=== PATIENT | female | born 2005 | race American Indian/Alaskan Native ===

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

== ENCOUNTER 2024-03-01 20:41 | Emergency (ER) | payer OTHER ==
[~2024-03-01] VITALS: Ht 170.2 cm; Wt 62.6 kg
[~2024-03-01 20:41] MED LIST changes: +ANTI-FUNGAL POW71 GM TOP; +DIFLUCAN100 MG PO
[2024-03-01] MEDS ORDERED: ADVIL200 MG PO (20:53)
[2024-03-01] MEDS ORDERED: ACETAMINOPHEN325 M1 PO (20:53)
[2024-03-01] MEDS ORDERED: SODIUM CHLORIDE 0.9% 500 ML IV ONE (21:00)
[2024-03-01] MEDS ORDERED: KETOROLAC TROMETHAMINE 30 MG/ML VIAL IV ONE (21:00)
[2024-03-01 21:15] LABS: BASOPHILS 0.3 % (0-2); EOSINOPHILS 0.1 % (0-6); HEMATOCRIT 38.5 % (35.0-50.0); HEMOGLOBIN 12.6 g/dL (12.0-18.0); LYMPHOCYTES 7.8 % (24-44); MCH 27.2 (27-36); MCHC 32.6 g/dl (30-36); MCV 83.4 fl (81-99); MONOCYTES 13.3 % (0-12); NEUTROPHILS 78.5 % (39-80); PLATELET COUNT 268 K/uL (140-440); RBC 4.61 M/ul (4.3-5.7); RDW 15.3 (10.5-15.0)
[2024-03-01 21:23] LABS: ANION GAP 16.4 (7-21); BUN/CREATININE RATIO 12.5 (6.0-28.6); CALCIUM 8.3 mg/dL (8.5-10.1); CREATININE, SERUM 0.64 mg/dL (0.55-1.02); POTASSIUM 3.4 mmol/L (3.5-5.1)
[2024-03-01] MEDS ORDERED: CYCLOBENZAPRINE HCL 10 MG TAB PO ONE (21:30)
[2024-03-01 21:58] LABS: INFLUENZA B NAA NEGATIVE (NEGATIVE); RESPIRATORY SYNCYTIAL VIR NAA NEGATIVE (NEGATIVE)
[2024-03-01] MEDS ORDERED: CYCLOBENZAPRINE10 MG PO (22:16)
[2024-03-01] MEDS ORDERED: CYCLOBENZAPRINE HCL 10 MG HOME.PACK PO ONE (22:30)
[2024-03-01 22:42] VITALS: BP 111/52
== END 2024-03-01 22:40 | disposition home or self-care (01) ==
LOC: ED 20:41
PROVIDERS: Family Medicine
DX: B34.9 Viral infection, unspecified (principal); Z87.891 Personal history of nicotine dependence; Z88.0 Allergy status to penicillin; Z88.1 Allergy status to other antibiotic agents; Z79.899 Other long term (current) drug therapy
CPT/HCPCS: 36415; 80048; 85025; 87502; 99283; J7040

== ENCOUNTER 2024-11-18 19:38 | Observation (INO) | payer OTHER ==
[~2024-11-18] VITALS: Ht 152.4 cm; Wt 58.4 kg
[~2024-11-18 19:38] MED LIST changes: +ACETAMINOPHEN325 M1 PO; +ADVIL200 MG PO; +CYCLOBENZAPRINE10 MG PO; +ONDANSETRON ODT4 MG PO
[2024-11-18 20:10] LABS: BASOPHILS 0.8 % (0.1-1.2); EOSINOPHILS 0.5 % (0.7-5.8); LYMPHOCYTES 31.8 % (19.3-51.7); MCH 27.0 PG (25.6-32.2); MCHC 30.8 g/dL (32.2-35.5); MCV 87.5 fL (79.4-94.8); MONOCYTES 5.4 % (4.7-12.5); NEUTROPHILS 61.4 % (34.0-71.1); RBC 4.56 M/uL (3.93-5.22)
[2024-11-18] MEDS ORDERED: NALOXONE HCL 0.4 MG SYR IV ONE (20:15)
[2024-11-18 20:46] LABS: ALCOHOL, MEDICAL 248 ng/dL (<3); ALT (SGPT) 18 U/L (14-59); AST (SGOT) 15 U/L (15-37); GLOMERULAR FILTRATION RATE,EST 152 mL/min (>60); PROTEIN, TOTAL 7.2 g/dL (6.4-8.2); TSH, 3RD GENERATION 1.232 uIU/mL (0.516-4.130); UREA NITROGEN 4 mg/dL (7-18)
[2024-11-18 21:20] LABS: BLOOD/HGB, URINE NEGATIVE (Negative); KETONE, URINE NEGATIVE (Negative); LEUK ESTERASE, URINE NEGATIVE (negative); NITRITE, URINE NEGATIVE (negative)
[2024-11-18 21:36] LABS: AMPHETAMINES, URINE NEGATIVE (NEGATIVE); BARBITURATES, URINE NEGATIVE (NEGATIVE); BENZODIAZEPINE, URINE NEGATIVE (NEGATIVE); CANNABINOID, URINE POSITIVE (NEGATIVE); COCAINE, URINE NEGATIVE (NEGATIVE); ECSTASY, URINE NEGATIVE (NEGATIVE); FENTANYL, URINE NEGATIVE (NEGATIVE); METHADONE, URINE NEGATIVE (NEGATIVE); OPIATES, URINE NEGATIVE (NEGATIVE); OXYCODONE, URINE NEGATIVE (NEGATIVE); PHENCYCLIDINE, URINE NEGATIVE (NEGATIVE)
[2024-11-18] MEDS ORDERED: SODIUM CHLORIDE 0.9% 1,000 ML IV PRN (21:45)
[2024-11-18] MEDS ORDERED: POTASSIUM CHLORIDE 10 MEQ/100 ML BAG IV SCH (21:45)
[2024-11-18] MEDS ORDERED: CALCIUM GLUCONATE 1,000 MG/10 ML VIAL IV ONE (22:00)
[2024-11-18] MEDS ORDERED: LACTATED RINGER'S 1,000 ML IV SCH (23:45)
[2024-11-19] VITALS (8 sets, daily range): BP systolic 100–109; BP diastolic 64–80
--- NOTE | 2024-11-19 01:05 | NUR ---
PT BROUGHT DOWN FROM ER, ADMITTED FOR POSSIBLE OVERDOSE. PT IS AWAKE ON ARRIVAL, RESPONSIVE BUT SLOW TO RESPOND TO QUESTIONS. SHE IS ASSISTED UP TO BS TO VOID 800ML URINE, STEADY ON FEET, BACK TO BED. S/O IS WITH PT. PT IS ABLE TO ANSWER MOST QUESTIONS, SHE STATES SHE DOES NOT REMEMBER ANYTHING ABOUT WHAT BROUGHT HER TO HOSPITAL, SHE STATES THE LAST THING SHE REMEMBERS IS HER FRIEND SITTING ON HER BED. SHE STATES SHE DOES NOT REMEMBER TAKING ANY PILLS OR IF SHE WAS SUICIDAL, DOES NOT FEEL SUICIDAL AT THIS TIME. SHE DENIES THAT SHE HAS ANY DEPRESSION OR SUICIDAL IDEATION. SHE IS TEARFUL AND IS AT BEDSIDE HOLDING HER HAND AND SUPPORTIVE. DISCUSSED PLAN OF CARE WITH THE PT, SHE HAS NO QUESTIONS AT THIS TIME.
--- NOTE | 2024-11-19 01:30 | NUR ---
PT REQUESTS MEDICATION TO HELP HER SLEEP, ENCOURAGED PT TO TRY TO REST AND SLEEP SHE IS ADMITTED FOR TRAZADONE OVERDOSE.
--- NOTE | 2024-11-19 01:39 | NUR ---
[facility] CALLED FOR EVALUATION OF PT, THEY STATE THEY ARE ON THEIR WAY.
--- NOTE | 2024-11-19 02:51 | NUR ---
PT REQUESTS NAUSEA MEDICATION, ZOFRAN SL GIVEN. SHE IS SITTING IN BED AWAKE LOOKING AT HER PHONE.
[2024-11-19] MEDS ORDERED: ONDANSETRON 4 MG TAB ODT SL PRN (03:00)
--- NOTE | 2024-11-19 03:51 | NUR ---
[facility] IN TO SEE PT
--- NOTE | 2024-11-19 04:30 | NUR ---
[facility] WAS CALLED TO EVALUATE PT SINCE SHE HAD NO MEMORY OF TAKING TRAZADONE OR EVENTS PRIOR TO BECOMING UNRESPONSIVE, ALTHOUGH SHE DID SCORE NO RISK ON SUICIDE SCREENING ONCE AWAKE. CRISIS NOTE WRITTEN BY [facility], CRISIS PHONE NUMBER LEFT WITH PT.
[2024-11-19 05:12] LABS: BASOPHILS 0.4 % (0.1-1.2); EOSINOPHILS 0.2 % (0.7-5.8); LYMPHOCYTES 23.7 % (19.3-51.7); MCH 27.5 PG (25.6-32.2); MCHC 32.1 g/dL (32.2-35.5); MCV 85.9 fL (79.4-94.8); MONOCYTES 6.8 % (4.7-12.5); NEUTROPHILS 68.8 % (34.0-71.1); RBC 4.25 M/uL (3.93-5.22)
[2024-11-19 05:28] LABS: ALT (SGPT) 16.0 U/L (14-59); AST (SGOT) 11.0 U/L (15-37); GLOMERULAR FILTRATION RATE,EST 140.0 mL/min (>60); PROTEIN, TOTAL 6.5 g/dL (6.4-8.2); UREA NITROGEN 2.0 mg/dL (7-18)
--- NOTE | 2024-11-19 06:55 | NUR ---
PT UP TO BATHROOM TO VOID, HR REMAINS 80'S SINUS RHYTHM WHILE UP.
[2024-11-19] MEDS ORDERED: MAGNESIUM SULFATE 2 GM/50 ML BAG IV ONE (07:45)
--- NOTE | 2024-11-19 07:57 | NUR ---
CALL FROM MOTHER, PT STATES IT IS OKAY TO DISCUSS HER CONDITION WITH HER MOM.
--- NOTE | 2024-11-19 08:00 | NUR ---
PATIENT IN BED. MD IN TO SEE PATIENT. SIGNIFICANT OTHER STEPPED INTO WAITING ROOM. RT IN AFTER TO DO EKG PER ORDERS. RN ASSISTED WITH IMAGING. NO OTHER NEEDS AT THIS TIME. UPDATED MD THAT [facility] CLEARED PATIENT AND POSION CONTROL WAS GOING TO SIGN OFF.
[2024-11-19] MEDS ORDERED: ACETAMINOPHEN 325 MG TAB PO PRN (09:00)
[2024-11-19] MEDS ORDERED: LACTATED RINGER'S 1,000 ML IV SCH (09:00)
[2024-11-19] MEDS ORDERED: POTASSIUM CHLORIDE 10 MEQ TABCR PO ONE (09:15)
[2024-11-19] MEDS ORDERED: CALCIUM GLUCONATE 1,000 MG/10 ML VIAL IV ONE (09:15)
--- NOTE | 2024-11-19 09:17 | EKG ---
[facility] [address] [facility] [place], [place] [address] Signed Normal sinus rhythm Septal infarct , age undetermined Abnormal ECG When compared with ECG of 25-SEP-2019 15:20, PREVIOUS ECG IS PRESENT Confirmed by Tito Louie DO ([id number]) on 11/19/2024 9:17:19 AM Electronically Signed By: ITTO LOUIE DO 11/19/24 0917 PATIENT NAME: JAVIER SURESH Electrocardiogram DATE OF : 04 PHYSICIAN: TITO LOUIE DO REPORT #: [id number] REPORT IS CONFIDENTIAL AND NOT TO BE RELEASED WITHOUT AUTHORIZATION
[2024-11-19] MEDS ORDERED: Calcium Gluconate in NS 1,000 MG/50 ML BAG IV SCH (09:30)
--- NOTE | 2024-11-19 10:00 | NUR ---
PATIENTS SIGNIFICANT OTHER HAS FAISAL AT THE BEDSIDE WITH PATIENT. PATIENT SNACKING ON FOOD AT THSI TIME. UPDATED ON PLAN OF CARE. WILL GET LABS AT 1200 FOR RE-EVALUTION AND POSSIBLE DC TODAY.
[2024-11-19] MEDS ORDERED: CALCIUM CARBONATE 500 MG CHEW PO ONE (10:15)
[2024-11-19] MEDS ORDERED: ZOLOFT100 MG PO (10:57)
--- NOTE | 2024-11-19 10:57 | NUR ---
MED REC COMPLETE
[2024-11-19] MEDS ORDERED: TRAZODONE HCL50 MG PO (11:18)
--- NOTE | 2024-11-19 11:23 | NUR ---
patient resting in bed visiting on the phone with family. patients fluids infusing po medications given with no issues. patients significant other at bedside. fresh water provided. no other needs a tthis time.
[2024-11-19] MEDS ORDERED: PHARMACY RENAL DOSE ADJUSTMENT 1 DOSE MISC PO SCH (12:00)
[2024-11-19 12:15] LABS: GLOMERULAR FILTRATION RATE,EST 144.0 mL/min (>60); UREA NITROGEN 3.0 mg/dL (7-18)
--- NOTE | 2024-11-19 12:57 | NUR ---
PATIENT HAS BEEN UP WALKING IN ROOM. LABS DONE. RESULTS IN AND MD NOTIFIED. MD IN TO SEE PATIENT. PER POISION CONTROL PATIENT IS CLEARED AND SIGNED OFF THIS AM. PER MD WILL DC PATIENT.
[2024-11-19] MEDS ORDERED: MELATONIN 3 MG TAB PO PRN (21:00)
--- NOTE | 2024-11-21 13:45 | EKG ---
[facility] [address] [facility] [place] [address] Signed Normal sinus rhythm with sinus arrhythmia Possible Left atrial enlargement Borderline ECG When compared with ECG of 18-NOV-2024 20:15, (Unconfirmed) Criteria for Septal infarct are no longer present Confirmed by Tito Louie DO ([id number]) on 11/21/2024 1:45:31 PM Electronically Signed By: TITO LOUIE DO 11/21/24 1345 PATIENT NAME: JAVIER SURESH Electrocardiogram DATE OF : [birth year] PHYSICIAN: TITO LOUIE DO REPORT #: [id number] REPORT IS CONFIDENTIAL AND NOT TO BE RELEASED WITHOUT AUTHORIZATION
== END 2024-11-19 13:57 | disposition home or self-care (01) ==
LOC: ED 19:38 → CCU 19:39
PROVIDERS: Internal Medicine; ADMIT Student in an Organized Health Care Education/Training Program; ATTEND Student in an Organized Health Care Education/Training Program
DX: T43.211A Poisoning by selective serotonin and norepinephrine reuptake inhibitors, accidental (unintentional), initial encounter (principal); F32.9 Major depressive disorder, single episode, unspecified; Z88.0 Allergy status to penicillin; Z88.1 Allergy status to other antibiotic agents; Z87.891 Personal history of nicotine dependence
CPT/HCPCS: 36415; 51701; 70450; 71045; 80048; 80053; 80307; 81003; 83735; 84443; 84703; 85025; 93005; 93010; 96365; 96366; 96367; 96375; 96376; 99285-25; A9270; G0378; G0480; J0612; J2312; J3475; J3480; J7030; J7121